=== PATIENT | female | born 1965 | race Caucasian/White ===

== ENCOUNTER 2016-10-13 15:44 | Emergency (ER) | payer BC ==
[2016-10-13 16:27] LABS: BASOPHILS 0.6 %; BASOPHILS ABSOLUTE 0.04 10/3/uL (0.0-0.16); EOSINOPHILS 0.1 %; EOSINOPHILS ABSOLUTE 0.01 10/3/uL (0.0-0.53); ER CBC TAT 0 Hrs 07 Mins; HEMATOCRIT 40.9 % (36.0-48.0); HEMOGLOBIN 14.1 g/dL (12.0-16.0); IMMATURE GRANULOCYTES 0.3 %; IMMATURE GRANULOCYTES ABSOLUTE 0.02 10/3/uL (0.0-0.11); LYMPHOCYTES 21.4 %; LYMPHOCYTES ABSOLUTE 1.49 10/3/uL (0.67-4.30); MEAN CORPUSCULAR HEMOGLOB 28.1 pg (26.0-34.0); MEAN CORPUSCULAR VOLUME 81.6 fL (80-100); MEAN PLATELET VOLUME 8.8 fL (9.2-13.0); MONOCYTES 10.6 %; MONOCYTES ABSOLUTE 0.74 10/3/uL (0.21-1.20); NEUTROPHILS ABSOLUTE 4.65 10/3/uL (2.02-8.40); PLATELET COUNT 390 10/3/uL (150-400); RBC DISTRIBUTION WIDTH 13.7 % (12.0-16.0); RED CELL COUNT 5.01 10/6/uL (4.0-5.6)
[2016-10-13 16:28] LABS: MANUAL DIFF NO %; MEAN CORPUS HGB CONC 34.5 g/dL (32.0-36.0)
[2016-10-13 16:36] LABS: INTERNATIONAL NORMAL RATI 1.1 UNITS (-); PROTIME (NOT ORD) 13.6 SEC (12.0-14.5)
[2016-10-13 16:44] LABS: BUN (BLOOD UREA NITROGEN) 15 MG/DL (6-23); CHEST PAIN PROFILE TAT 0 Hrs 24 Mins; CHLORIDE, SERUM 100 MMOL/L (96-112); CO2 (CARBON DIOXIDE) 24 MMOL/L (24-34); CREATININE 1.02 MG/DL (0.55-1.02); GFR AFRICAN AMERICAN 73 ML/MIN (>=60); GFR NON AFRICAN AMERICAN 63 ML/MIN (>=60); GLUCOSE, SERUM 99 MG/DL (60-99); POTASSIUM, SERUM 3.5 MMOL/L (3.5-5.3); SODIUM, SERUM 137 MMOL/L (135-148); TROPONIN I <0.02 NG/ML (<0.05)
[2016-10-13 16:45] LABS: CALCIUM, SERUM 10.3 MG/DL (8.5-10.4)
[2016-10-13 18:49] LABS: ALBUMIN 5.2 G/DL (3.5-5.0); DIRECT BILIRUBIN 0.1 MG/DL (0.0-0.4); INDIRECT BILIRUBIN(NOT ORDER) 0.3 MG/DL (0.1-0.9); TOTAL BILIRUBIN 0.4 MG/DL (0-1.2); TOTAL PROTEIN 8.8 G/DL (6.0-8.5)
[2016-10-13 22:03] LABS: ASCORBIC ACID (UR NOT ORDER) NEG (NEG); BILIRUBIN, URINE NEGATIVE (NEG); ER URINALYSIS TAT 0 Hrs 14 Mins; KETONE, URINE 20 MG/DL (NEG); LEUKOCYTE ESTERASE(NOT OR MOD (NEG); NITRITE (URINE) NEG (NEG); WBC (NOT ORDERED) (RFLEX) 3 (0-5)
== END 2016-10-14 01:02 | disposition home or self-care (01) ==
LOC: ER 15:44
PROVIDERS: Emergency Medicine; Hospitalist
DX: R10.84 Generalized abdominal pain (principal); E86.0 Dehydration; R11.2 Nausea with vomiting, unspecified; N39.0 Urinary tract infection, site not specified; Z90.710 Acquired absence of both cervix and uterus
CPT/HCPCS: 71020; 74177; 80048; 80076; 81001; 83690; 83735; 84484; 85025; 85610; 85730; 87040; 87086; 93005; 96374; 96375; 99285; J1170; J1885; J2405; J2550; J2765; J2930; Q9967